=== PATIENT | male | born 1985 | race Two or more races ===

== ENCOUNTER 2018-07-06 07:25 | Emergency (ER) | payer SELFPAY ==
[~2018-07-06] VITALS: Ht 182.9 cm; Wt 81.6 kg
[~2018-07-06 07:25] MED LIST: ETOMIDATE (2MG/ML) 20ML VIAL IV ONE; SUCCINYLCHOLINE CHLORIDE 20 MG/ML 10ML VIAL IV ONE
[2018-07-06] MEDS ORDERED: MIDAZOLAM DRIP 50 mg/50mL 50 ML IV ONE (07:27)
[2018-07-06 07:54] VITALS: BP 95/61
[2018-07-06] MEDS ORDERED: SUCCINYLCHOLINE CHLORIDE 20 MG/ML 10ML VIAL IV ONE (08:00)
[2018-07-06] MEDS ORDERED: ETOMIDATE (2MG/ML) 20ML VIAL IV ONE (08:00)
[2018-07-06] MEDS ORDERED: MIDAZOLAM DRIP 50 mg/50mL 50 ML IV SCH (09:24)
== END 2018-07-06 08:01 | disposition short-term general hospital (02) ==
LOC: EDSEX 07:25 → EDBD 07:25 → ER 07:25
DX: S01.90XA Unspecified open wound of unspecified part of head, initial encounter (principal); X74.01XA Intentional self-harm by airgun, initial encounter; Y93.89 Activity, other specified; Y99.8 Other external cause status; Y92.89 Other specified places as the place of occurrence of the external cause
CPT/HCPCS: 31500; 99291; J0330; J2250

== ENCOUNTER 2019-06-12 22:15 | Emergency (ER) | payer MEDICAID ==
[~2019-06-12] VITALS: Ht 185.4 cm; Wt 90.7 kg
[2019-06-12 22:45] VITALS: BP 128/87
== END 2019-06-12 22:51 ==
LOC: ER 22:18
DX: Z00.00 Encounter for general adult medical examination without abnormal findings (principal)